=== PATIENT | female | born 1950 | race Caucasian/White ===

== ENCOUNTER 2016-11-25 10:41 | Emergency (ER) | payer SELFPAY ==
[~2016-11-25] VITALS: Ht 162.6 cm; Wt 67.0 kg
[~2016-11-25 10:41] MED LIST: ACYC400T2 PO; DOCO2CRE3 TOP; HYD25 PO; LOSA25TA5 PO
[2016-11-25 10:54] VITALS: Ht 162.6 cm; Wt 67.0 kg
== END 2016-11-25 11:00 | disposition left against medical advice (07) ==
LOC: E/R 10:41
DX: Z53.21 Procedure and treatment not carried out due to patient leaving prior to being seen by health care provider (principal)